=== PATIENT | female | born 1990 | race African-American/Black ===

== ENCOUNTER 2017-07-19 16:13 | Emergency (ER) | payer SELFPAY ==
[2017-07-19 16:14] VITALS: BP 136/69; PULSE 82; RESP 12; TEMP 97.9; O2SAT 100
[2017-07-19 18:59] VITALS: BP 110/54; PULSE 56; RESP 12; O2SAT 99
--- NOTE | 2017-07-19 19:26 | PD ---
HPI Chief Complaint: Medical Clearance Time Seen by Provider: 18:04 Travel History International Travel<30 days: No Contact w/Intl Traveler<30days: No Traveled to known affect area: No History of Present Illness HPI patient states that she has taken 4 home homes which have been "positive" and so she is here to confirm if she really is or not. patient denies any symptoms. denies vag bleeding. denies associated n/v/d/ abdpain/cp/dorantes/. PFSH Past Medical History Asthma: Yes Diminished Hearing: No Medical other: Yes (ovaryan cyst ) Reproductive: Yes (asthma as a child) Tetanus Vaccination: > 5 Years Influenza Vaccination: No ?: Unknown LMP: 06/29/17 : 1 Miscarriage: 1 Past Surgical History Surgical History: No Previous Surgery Social History Alcohol Use: Yes (rare) Tobacco Use: No Substance Use: No Allergies-Medications (Allergen,Severity, Reaction): Coded Allergies: No Known Allergies (Unverified , 07/19/17) Reported Meds & Prescriptions Reported Meds & Active Scripts Active No Active Prescriptions or Reported Medications Review of Systems Except as stated in HPI: all other systems reviewed are Neg Physical Exam Narrative GENERAL: SKIN: Warm and dry. HEAD: Atraumatic. Normocephalic. EYES: Pupils equal and round. No scleral icterus. No injection or drainage. ENT: No nasal bleeding or discharge. Mucous membranes pink and moist. NECK: Trachea midline. No JVD. CARDIOVASCULAR: Regular rate and rhythm. RESPIRATORY: No accessory muscle use. Clear to auscultation. Breath sounds equal bilaterally. GASTROINTESTINAL: Abdomen soft, non-tender, nondistended. MUSCULOSKELETAL: Extremities without clubbing, cyanosis, or edema. No obvious deformities. NEUROLOGICAL: Awake and alert. No obvious cranial nerve deficits. Motor grossly within normal limits. Five out of 5 muscle strength in the arms and legs. Normal speech. PSYCHIATRIC: Appropriate mood and affect; insight and judgment normal. Data Data Last Documented VS Vital Signs Date Time Temp Pulse Resp B/P (MAP) Pulse Ox O2 Delivery O2 Flow Rate FiO2 07/19/17 19:00 56 12 07/19/17 18:59 110/54 (72) 99 07/19/17 16:14 97.9 Orders Orders Ed Urine Pregnancytest Poc (07/19/17 16:19) Beta Hcg (Quant/Titer) (07/19/17 18:05) Beta Hcg (Quant/Titer) (07/19/17 18:07) Labs Laboratory Tests Test 07/19/17 18:15 Human Chorionic Gonadotropin, Quant LESS THAN 1 MIU/ML MDM Medical Decision Making Medical Screen Exam Complete: Yes Emergency Medical Condition: Yes Medical Record Reviewed: Yes Differential Diagnosis preg v nonpreg Narrative Course urine preg neg, and quantitiave hcg <1 which definitively excludes for this young lady Diagnosis Primary Impression: medical clearance Patient Instructions: General Instructions Scripts No Active Prescriptions or Reported Meds Disposition: 01 DISCHARGE HOME Condition: Stable Prasanna Talavera MD Jul 19, 2017 19:26
== END 2017-07-19 20:04 | disposition home or self-care (01) ==
LOC: NEPD 16:13
DX: Z32.02 Encounter for pregnancy test, result negative (principal); J45.909 Unspecified asthma, uncomplicated
CPT/HCPCS: 84702; 84703; 99282

== ENCOUNTER 2017-10-26 20:00 | Emergency (ER) | payer SELFPAY ==
[~2017-10-26] VITALS: Ht 170.2 cm; Wt 70.0 kg
[2017-10-26 20:07] VITALS: BP 122/78; PULSE 90; RESP 18; TEMP 97.6; O2SAT 99
[2017-10-26] MEDS ORDERED: CEPHALEXIN MONOHYDRATE 500 MG CAP PO ONE (20:45)
[2017-10-26] MEDS ORDERED: TETANUS/DIPHTHERIA TOXOID ADULT 0.5 ML VIAL IM ONE (20:45)
[2017-10-26] MEDS ORDERED: NORC5TAB PO (20:46)
--- NOTE | 2017-10-26 20:46 | PD ---
HPI Chief Complaint: Fall Time Seen by Provider: 20:08 Travel History International Travel<30 days: No Contact w/Intl Traveler<30days: No Traveled to known affect area: No History of Present Illness HPI 26-year-old black female presents to emergency department by EMS. She is right- hand dominant. She states that she had a trip over a broom and fall at [place] [employer] her employment. 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 The patient was carrying 3 glasses at the time. She states that she fell into a wall with the left side of her body and hit her head on the wall then proceeded to to the ground. Patient sustained a laceration to her left palm. She has had some decreased sensation in her hand after the accident. She did not lose consciousness. No neck or back pain. Mild headache. Bleeding is alleviated with direct pressure. Worsened by tripping. Patient has not had a tetanus shot over 5 years. No other injuries. Patient does report pain with movement of the fingers. PFSH Past Medical History Asthma: Yes Diminished Hearing: No Reproductive: Yes (asthma as a child) Tetanus Vaccination: > 5 Years ?: Not LMP: Now : 1 Miscarriage: 1 Past Surgical History Surgical History: No Previous Surgery Social History Alcohol Use: Yes (rare) Tobacco Use: Yes Substance Use: No Allergies-Medications (Allergen,Severity, Reaction): Coded Allergies: No Known Allergies (Unverified , 07/19/17) Reported Meds & Prescriptions Reported Meds & Active Scripts Active [place] (Hydrocodone-Acetaminophen) 5 Mg-325 Mg Tab 1 Tab PO Q8HR PRN Review of Systems General / Constitutional: No: Fever Eyes: No: Visual changes HENT: No: Headaches, Neck Stiffness, Neck Pain Cardiovascular: No: Chest Pain or Discomfort Respiratory: No: Shortness of Breath Gastrointestinal: No: Abdominal Pain Genitourinary: No: Dysuria Musculoskeletal: Positive: Limited ROM (Secondary to pain), Pain (Pain in her laceration), No: Arthralgias, Edema Skin: Positive Other (Left hand laceration), No Rash Neurologic: Positive: Headache (Mild), Paresthesia (In the left hand), Sensory Disturbance, Other (Patient is able to recollect the surrounding events without any limitation), No: Weakness, Syncope, Ataxia, Change in Mentation, Seizures Psychiatric: No: Depression Endocrine: No: Polydipsia Hematologic/Lymphatic: No: Easy Bruising Physical Exam Narrative GENERAL: Well-developed, well-nourished in no apparent distress. Nontoxic appearing. HEAD: Normocephalic, atraumatic. EYES: Pupils equal round and reactive. Extraocular motions intact. No scleral icterus. No injection or drainage. ENT: Nose clear. Throat without erythema, tonsillar hypertrophy or exudate. Uvula midline. Airway patent. NECK: Trachea midline. Supple, nontender, moves head freely. No central bony tenderness or spasm. CARDIOVASCULAR: Regular rate and rhythm without murmurs, gallops, or rubs. RESPIRATORY: Clear to auscultation. Breath sounds equal bilaterally. No wheezes , rales, or rhonchi. GASTROINTESTINAL: Abdomen soft, non-tender, nondistended. No hepato-splenomegaly , or palpable masses. No guarding. EXTREMITIES: No clubbing, cyanosis, or edema. No joint tenderness. Patient has a 3.5 cm laceration to the mid volar palm. There is a superficial glass foreign body on the skin. There is no active bleeding. She complains of decreased sensation in all of her fingers. The laceration is in the mid palm. The patient is unwilling to move her fingers for a full examination of range of motion due to pain in the laceration. She has intact cap refill. I am able to passively range her fingers. BACK: Nontender without deformity. No flank tenderness. NEUROLOGICAL: Awake, alert and oriented x 3 .Cranial nerves grossly intact. Motor strength that grossly within normal limits. Normal speech. Patient complains of altered sensation in the complete hand. Data Data Last Documented VS Vital Signs Date Time Temp Pulse Resp B/P (MAP) Pulse Ox O2 Delivery O2 Flow Rate FiO2 10/26/17 20:07 97.6 90 18 122/78 (93) 99 Orders Orders Tetanus/Diphtheria Tox Adult (Tetanus/Di (10/26/17 20:45) Cephalexin (Keflex) (10/26/17 20:45) Hand, Complete ([id number]) (10/26/17 20:34) Ketorolac Inj (Toradol Inj) (10/26/17 21:00) Lidocaine 1% Inj (50 Ml) (Xylocaine 1% I (10/26/17 21:00) [facility] Medical Decision Making Medical Screen Exam Complete: Yes Emergency Medical Condition: Yes Medical Record Reviewed: Yes Interpretation(s) Left hand: I see no foreign body localized over the patient's laceration. She has foreign bodies noted on the interdigital space of the thumb and index. I suspect this is on the superficial skin and not in the wound. Differential Diagnosis MDM: High Differential diagnoses: Fracture, sprain, strain, dislocation, contusion, neurovascular injury Narrative Course This is a 26-year-old black female with a laceration to the proximal mid left estefany. She complains of decreased altered sensation in all of her fingers. The patient's exam is inconsistent with any localizing nerve distribution. I suspect that she may have some neuropraxia from having her dressing on. The cut does not correlate with any significant nerve or vascular injury. An x-ray has been performed to rule out foreign body. Tetanus status updated. She is given Keflex 1 g p.o. The patient is complaining of pain in her hand. I have ordered 30 mg of Toradol. I have delayed anesthetizing her wound so I could reevaluate her neurological status after having her dressing removed and x-rays performed. At 2054 I have gone back into the patient's room to inform her of the x-ray findings and repair her wound. The patient is noted to have left her examination room and is considered AWOL. The patient will be signed out AGAINST MEDICAL ADVICE although she was absent without leave before I was able to render AGAINST MEDICAL ADVICE discharge instructions. Diagnosis Primary Impression: Left hand laceration Additional Impression: Absent without leave Med/Other Pt SpecificInfo: Prescription(s) given Scripts Hydrocodone-Acetaminophen ([place]) 5 Mg-325 Mg Tab 1 TAB PO Q8HR Y for PAIN, #6 TAB 0 Refills Prov: Kameron Christian MD 10/26/17 Disposition: 07 AGAINST MEDICAL ADVICE Condition: Stable Coleman Chauhan Oct 26, 2017 20:45
--- NOTE | 2017-10-26 20:59 | RADRPT ---
EXAM DATE/TIME: 10/26/2017 20:38 [facility] COMPARISON: No previous studies available for comparison. INDICATIONS : Foreign body. Patient cut the palm of her left hand with glass cups at work. MEDICAL HISTORY : None. SURGICAL HISTORY : None. ENCOUNTER: Initial ACUITY: 1 day PAIN SCORE: 10/10 LOCATION: Left hand. FINDINGS: Radiopaque foreign material is seen in the web space of the thenar eminence. No fracture CONCLUSION: Foreign body as above Vick Mendez MD FACR on October 26, 2017 at 20:56 Board Certified Radiologist. This report was verified electronically.
[2017-10-26] MEDS ORDERED: KETOROLAC TROMETHAMINE 30 MG/ML (IVP) VIAL IV PUSH ONE (21:00)
[2017-10-26] MEDS ORDERED: LIDOCAINE HCL 1% 50 ML VIAL INFIL ONE (21:00)
== END 2017-10-26 21:18 | disposition left against medical advice (07) ==
LOC: NEPD 20:00
DX: S61.412A Laceration without foreign body of left hand, initial encounter (principal); Z53.21 Procedure and treatment not carried out due to patient leaving prior to being seen by health care provider; J45.909 Unspecified asthma, uncomplicated; R51 Headache; W18.09XA Striking against other object with subsequent fall, initial encounter; Y93.01 Activity, walking, marching and hiking; Y92.511 Restaurant or cafe as the place of occurrence of the external cause; Y99.0 Civilian activity done for income or pay; Z72.0 Tobacco use; Z23 Encounter for immunization
CPT/HCPCS: 73130; 90471; 90714